=== PATIENT | male | born 1950 | race Caucasian/White ===

== ENCOUNTER → 2016-12-20 | Outpatient (CLI) | payer MEDICARE ==
[~2016-12-20] MED LIST: ATEN1TAB73 PO; CLON.5 PO; COUM5TAB PO; DEPA500T3 PO; LANO0.2510 PO
[2016-12-20 14:55] LABS: INTERNATIONAL NORMALIZED RATIO 2.8 RATIO; PROTHROMBIN TIME - PATIENT 32.8 SEC (9.8-11.6)
== END ==
LOC: CLAB 14:20
DX: I42.5 Other restrictive cardiomyopathy (principal)
CPT/HCPCS: 36415; 85610

== ENCOUNTER → 2017-02-06 | Outpatient (CLI) | payer MEDICARE ==
[2017-02-06 15:42] LABS: INTERNATIONAL NORMALIZED RATIO 2.3 RATIO; PROTHROMBIN TIME - PATIENT 26.4 SEC (9.8-11.6)
== END ==
LOC: CLAB 14:58
DX: I42.5 Other restrictive cardiomyopathy (principal)
CPT/HCPCS: 36415; 85610